=== PATIENT | female | born 2005 | race Hispanic/Latino ===

== ENCOUNTER 2023-07-22 20:47 | Inpatient (IN) | payer MEDICAID, OTHER ==
[~2023-07-22] VITALS: Ht 157.5 cm; Wt 56.2 kg
[2023-07-22 21:50] LABS: BASOPHILS # (AUTO) 0.02 K/uL (0.00-0.20); BASOPHILS % (AUTO) 0.2 % (0.0-5.0); EOSINOPHILS # (AUTO) 0.02 K/uL (0.00-0.70); EOSINOPHILS % (AUTO) 0.2 % (0.0-8.0); HEMATOCRIT 37.2 % (36-48); IMMATURE GRANULOCYTE ABSOLUTE 0.06 K/uL (0-1); LYMPHOCYTES # (AUTO) 1.1 K/uL (1.0-4.8); MEAN CORPUSCULAR HEMOGLOBIN 32.8 pg (27.0-33.0); MEAN CORPUSCULAR HGB CONC 33.3 g/dL (32.0-36.0); MEAN CORPUSCULAR VOLUME 98.4 fL (80-100); MONOCYTES # (AUTO) 0.7 K/uL (0.1-1.0); MONOCYTES % (AUTO) 5.7 % (3.0-13.0); NEUTROPHILS # (AUTO) 10.3 K/uL (1.8-7.7); NEUTROPHILS % (AUTO) 84.4 % (40.0-77.0); PLATELET COUNT (AUTO) 354 K/uL (130-400); RED BLOOD CELL COUNT(AUTO) 3.78 MIL/uL (4.00-5.50); RED CELL DISTRIBUTION WIDTH 12.5 % (11.0-15.5); WHITE BLOOD COUNT (AUTO) 12.2 K/uL (4.8-10.8)
[2023-07-22 21:58] LABS: CREATININE 0.7 mg/dL (0.5-1.5); POTASSIUM 3.3 mmol/L (3.5-5.1)
[2023-07-22 22:02] LABS: APPEARANCE,URINE CLEAR (CLEAR); BILIRUBIN,URINE NEGATIVE (NEGATIVE); COLOR,URINE LIGHT-YELLOW (YELLOW); GLUCOSE, URINE (UA) NEGATIVE (NEGATIVE); KETONES,URINE 40 mg/dL (NEGATIVE); LEUKOCYTE ESTERASE ,URINE 25 Leu/uL (NEGATIVE); NITRATE,URINE NEGATIVE (NEGATIVE); OCCULT BLOOD,URINE NEGATIVE (NEGATIVE); PH,URINE 6.5 (5.0-8.0); PROTEIN,URINE NEGATIVE (NEGATIVE); UROBILINOGEN,URINE 0.2 mg/dL (0.2-1.0)
[2023-07-22 22:03] LABS: BILIRUBIN,TOTAL 0.5 mg/dL (0.2-1.0); TOTAL PROTEIN, SERUM 8.4 g/dL (6.0-8.3)
[2023-07-22 22:03] LABS: ADD UA MICROSCOPIC YES
[2023-07-22 22:04] LABS: HCG,QUALITATIVE URINE NEGATIVE (NEGATIVE)
[2023-07-22 22:06] LABS: BACTERIA,URINE RARE /HPF (None Seen); MUCUS,URINE RARE LPF (None Seen); SQUAMOUS EPITHELIAL CELL,UR RARE /HPF (0-2)
[2023-07-22 22:41] LABS: WBC MORPHOLOGY CONSISTENT W/DIFF
[2023-07-22] MEDS ORDERED: POTASSIUM BICARB/CIT AC 25 MEQ TABLET.EFF PO ONE (23:00)
[2023-07-23] VITALS (7 sets, daily range): BP systolic 104–127; BP diastolic 55–81; PULSE 70–91; RESP 16–19; O2SAT 98
[2023-07-23] MEDS ORDERED: CEPH500B PO (00:09)
[2023-07-23] MEDS ORDERED: ZOSYN 3.375GM +NS 50ML IVPB SCH (00:30)
[2023-07-23] MEDS ORDERED: IOHEXOL-350 75 ML VIAL IV ONE (00:58)
[2023-07-23] MEDS ORDERED: DIATR MEGLU/DIATRIZOATE SODIUM 30 ML BOTTLE ONE (00:58)
[2023-07-23] MEDS ORDERED: MORPHINE 4 MG SYG IVP ONE (01:00)
[2023-07-23] MEDS ORDERED: 0.9%NACL 1000ML 1,000 ML IV ONE (01:00)
[2023-07-23] MEDS ORDERED: ONDANSETRON 4MG INJ IVP ONE (01:00)
[2023-07-23 01:08] LABS: INR < 0.93 (0.85-1.15); PROTHROMBIN TIME 10.8 SEC (9.6-11.6)
[2023-07-23] MEDS ORDERED: MAGNESIUM 2GM PREMIX 50ML 50 ML IV PRN (03:30)
[2023-07-23] MEDS ORDERED: ACETAMINOPHEN 325 MG TAB PO PRN ×2 (03:30)
[2023-07-23] MEDS ORDERED: MORPHINE 2 MG SYG IVP PRN (03:30)
[2023-07-23] MEDS: LACTATED RINGERS 1000ML 1,000 ML IV SCH ×3 (03:47→22:28)
[2023-07-23] MEDS: ZOSYN 3.375GM+NS 50ML 50 ML IV SCH ×3 (04:48→21:12)
[2023-07-23 06:52] LABS: BASOPHILS # (AUTO) 0.03 K/uL (0.00-0.20); BASOPHILS % (AUTO) 0.2 % (0.0-5.0); EOSINOPHILS # (AUTO) 0.03 K/uL (0.00-0.70); EOSINOPHILS % (AUTO) 0.2 % (0.0-8.0); IMMATURE GRANULOCYTE ABSOLUTE 0.08 K/uL (0-1); LYMPHOCYTES # (AUTO) 1.8 K/uL (1.0-4.8); LYMPHOCYTES % (AUTO) 13.5 % (21.0-51.0); MEAN CORPUSCULAR HEMOGLOBIN 33.4 pg (27.0-33.0); MEAN CORPUSCULAR VOLUME 98.3 fL (80-100); MONOCYTES # (AUTO) 0.8 K/uL (0.1-1.0); MONOCYTES % (AUTO) 5.9 % (3.0-13.0); NEUTROPHILS # (AUTO) 10.8 K/uL (1.8-7.7); NEUTROPHILS % (AUTO) 79.6 % (40.0-77.0); PLATELET COUNT (AUTO) 331 K/uL (130-400); RED BLOOD CELL COUNT(AUTO) 3.56 MIL/uL (4.00-5.50); RED CELL DISTRIBUTION WIDTH 12.4 % (11.0-15.5); WHITE BLOOD COUNT (AUTO) 13.6 K/uL (4.8-10.8)
[2023-07-23 06:55] LABS: ALBUMIN 3.5 g/dL (3.5-5.0); BILIRUBIN,TOTAL 0.6 mg/dL (0.2-1.0); CREATININE 0.7 mg/dL (0.5-1.5); MAGNESIUM 1.7 mg/dL (1.80-2.40); POTASSIUM 3.3 mmol/L (3.5-5.1); TOTAL PROTEIN, SERUM 7.4 g/dL (6.0-8.3)
[2023-07-23 08:07] LABS: ERYTHROCYTE SEDIMENTATION RATE 50 MM/HR (0-20)
[2023-07-23] MEDS: FAMOTIDINE 20MG VIAL IV SCH ×2 (09:12→21:12)
[2023-07-23] MEDS: POTASSIUM CHLORIDE 20MEQ/100ML 100 ML IV PRN ×2 (10:26→15:50)
[2023-07-23] MEDS ORDERED: PEG 3350/NA SULF,BICARB,CL/KCL 4000 ML SOLN PO ONE (14:30)
[2023-07-23] MEDS ORDERED: FLUCONAZOLE 200 MG/NS 100 ML IV SCH (16:00)
[2023-07-24] VITALS (14 sets, daily range): BP systolic 91–123; BP diastolic 49–78; PULSE 57–87; RESP 15–20; O2SAT 94
[2023-07-24] MEDS: ZOSYN 3.375GM+NS 50ML 50 ML IV SCH ×3 (04:45→20:31)
[2023-07-24 06:32] LABS: BASOPHILS # (AUTO) 0.02 K/uL (0.00-0.20); BASOPHILS % (AUTO) 0.3 % (0.0-5.0); EOSINOPHILS # (AUTO) 0.11 K/uL (0.00-0.70); EOSINOPHILS % (AUTO) 1.5 % (0.0-8.0); HEMATOCRIT 32.5 % (36-48); IMMATURE GRANULOCYTE ABSOLUTE 0.03 K/uL (0-1); LYMPHOCYTES # (AUTO) 1.2 K/uL (1.0-4.8); LYMPHOCYTES % (AUTO) 17.1 % (21.0-51.0); MEAN CORPUSCULAR HEMOGLOBIN 32.5 pg (27.0-33.0); MEAN CORPUSCULAR HGB CONC 32.9 g/dL (32.0-36.0); MEAN CORPUSCULAR VOLUME 98.8 fL (80-100); MONOCYTES # (AUTO) 0.6 K/uL (0.1-1.0); NEUTROPHILS # (AUTO) 5.3 K/uL (1.8-7.7); NEUTROPHILS % (AUTO) 72.7 % (40.0-77.0); PLATELET COUNT (AUTO) 295 K/uL (130-400); RED BLOOD CELL COUNT(AUTO) 3.29 MIL/uL (4.00-5.50); RED CELL DISTRIBUTION WIDTH 12.2 % (11.0-15.5); WHITE BLOOD COUNT (AUTO) 7.3 K/uL (4.8-10.8)
[2023-07-24 06:45] LABS: ALBUMIN 3.1 g/dL (3.5-5.0); BILIRUBIN,TOTAL 0.5 mg/dL (0.2-1.0); CREATININE 0.7 mg/dL (0.5-1.5); POTASSIUM 3.7 mmol/L (3.5-5.1); TOTAL PROTEIN, SERUM 6.7 g/dL (6.0-8.3)
[2023-07-24] MEDS ORDERED: PROPOFOL 10 MG/ML 20ML VIAL IV ONE ×2 (07:42→07:51)
[2023-07-24] MEDS ORDERED: FLUCONAZOLE 200 MG/NS 100 ML 100 ML IV SCH (08:00)
[2023-07-24] MEDS: FAMOTIDINE 20MG VIAL IV SCH ×2 (09:00→20:31)
[2023-07-24] MEDS ORDERED: AZITHROMYCIN 250 MG TABLET PO ONE (14:30)
[2023-07-24] MEDS: ONDANSETRON 4MG INJ IV PRN (15:50)
[2023-07-24] MEDS: LACTATED RINGERS 1000ML 1,000 ML IV SCH (16:00)
[2023-07-24] MEDS: FLUCONAZOLE 200 MG/NS 100 ML 100 ML IV SCH (16:48)
[2023-07-25] VITALS (7 sets, daily range): BP systolic 102–125; BP diastolic 53–75; PULSE 60–72; RESP 18–20; O2SAT 98–99
[2023-07-25] MEDS: ZOSYN 3.375GM+NS 50ML 50 ML IV SCH ×3 (04:41→21:24)
[2023-07-25 05:36] LABS: BASOPHILS # (AUTO) 0.03 K/uL (0.00-0.20); BASOPHILS % (AUTO) 0.5 % (0.0-5.0); EOSINOPHILS # (AUTO) 0.21 K/uL (0.00-0.70); EOSINOPHILS % (AUTO) 3.2 % (0.0-8.0); HEMATOCRIT 33.8 % (36-48); IMMATURE GRANULOCYTE ABSOLUTE 0.01 K/uL (0-1); LYMPHOCYTES # (AUTO) 1.5 K/uL (1.0-4.8); LYMPHOCYTES % (AUTO) 22.5 % (21.0-51.0); MEAN CORPUSCULAR HEMOGLOBIN 32.6 pg (27.0-33.0); MEAN CORPUSCULAR HGB CONC 33.1 g/dL (32.0-36.0); MEAN CORPUSCULAR VOLUME 98.3 fL (80-100); MONOCYTES # (AUTO) 0.6 K/uL (0.1-1.0); MONOCYTES % (AUTO) 8.6 % (3.0-13.0); NEUTROPHILS # (AUTO) 4.3 K/uL (1.8-7.7); PLATELET COUNT (AUTO) 353 K/uL (130-400); RED BLOOD CELL COUNT(AUTO) 3.44 MIL/uL (4.00-5.50); RED CELL DISTRIBUTION WIDTH 12.2 % (11.0-15.5); WHITE BLOOD COUNT (AUTO) 6.5 K/uL (4.8-10.8)
[2023-07-25 05:50] LABS: ALBUMIN 3.6 g/dL (3.5-5.0); BILIRUBIN,TOTAL 0.4 mg/dL (0.2-1.0); CREATININE 0.9 mg/dL (0.5-1.5); POTASSIUM 3.3 mmol/L (3.5-5.1); TOTAL PROTEIN, SERUM 7.9 g/dL (6.0-8.3)
[2023-07-25] MEDS: KCL 20 MEQ ERTAB PO PRN (09:19)
[2023-07-25] MEDS: FAMOTIDINE 20MG VIAL IV SCH ×2 (09:19→21:24)
[2023-07-25] MEDS: POTASSIUM CHLORIDE 10% ELIXIR 20 MEQ/15 ML UDCUP PO PRN ×2 (11:09→12:25)
[2023-07-25] MEDS: FLUCONAZOLE 200 MG/NS 100 ML 100 ML IV SCH (16:29)
[2023-07-25] MEDS: LACTATED RINGERS 1000ML 1,000 ML IV SCH (18:04)
[2023-07-26] MEDS: LACTATED RINGERS 1000ML 1,000 ML IV SCH ×2 (01:30→04:51)
[2023-07-26 03:40] VITALS: BP 122/66; PULSE 74; RESP 18
[2023-07-26] MEDS: ZOSYN 3.375GM+NS 50ML 50 ML IV SCH ×2 (04:50→13:35)
[2023-07-26] MEDS ORDERED: DIATR MEGLU/DIATRIZOATE SODIUM 30 ML BOTTLE ONE (05:49)
[2023-07-26 06:50] LABS: BASOPHILS # (AUTO) 0.02 K/uL (0.00-0.20); BASOPHILS % (AUTO) 0.3 % (0.0-5.0); EOSINOPHILS # (AUTO) 0.17 K/uL (0.00-0.70); EOSINOPHILS % (AUTO) 2.4 % (0.0-8.0); HEMATOCRIT 34.3 % (36-48); IMMATURE GRANULOCYTE ABSOLUTE 0.02 K/uL (0-1); LYMPHOCYTES # (AUTO) 0.8 K/uL (1.0-4.8); LYMPHOCYTES % (AUTO) 10.9 % (21.0-51.0); MEAN CORPUSCULAR HEMOGLOBIN 33.1 pg (27.0-33.0); MEAN CORPUSCULAR HGB CONC 33.8 g/dL (32.0-36.0); MONOCYTES # (AUTO) 0.8 K/uL (0.1-1.0); MONOCYTES % (AUTO) 10.5 % (3.0-13.0); NEUTROPHILS # (AUTO) 5.4 K/uL (1.8-7.7); NEUTROPHILS % (AUTO) 75.6 % (40.0-77.0); PLATELET COUNT (AUTO) 331 K/uL (130-400); RED CELL DISTRIBUTION WIDTH 12.2 % (11.0-15.5); WHITE BLOOD COUNT (AUTO) 7.1 K/uL (4.8-10.8)
[2023-07-26 07:10] LABS: ALBUMIN 3.2 g/dL (3.5-5.0); BILIRUBIN,TOTAL 0.2 mg/dL (0.2-1.0); CREATININE 0.8 mg/dL (0.5-1.5); POTASSIUM 3.3 mmol/L (3.5-5.1); TOTAL PROTEIN, SERUM 7.2 g/dL (6.0-8.3)
[2023-07-26 07:17] VITALS: BP 105/67; PULSE 76; RESP 18
[2023-07-26] MEDS: FAMOTIDINE 20MG VIAL IV SCH (07:27)
[2023-07-26] MEDS: ONDANSETRON 4MG INJ IV PRN (07:27)
[2023-07-26] MEDS: KCL 20 MEQ ERTAB PO PRN ×3 (07:27→11:37)
[2023-07-26] MEDS ORDERED: IOHEXOL-350 75 ML VIAL IV ONE (09:30)
[2023-07-26 09:34] VITALS: O2SAT 98
[2023-07-26 12:33] VITALS: BP 103/64; PULSE 75; RESP 18
[2023-07-26] MEDS: FLUCONAZOLE 200 MG/NS 100 ML 100 ML IV SCH (14:54)
[2023-07-26] MEDS ORDERED: FLUC200T12 PO (15:24)
[2023-07-26] MEDS ORDERED: AUGMENTIN PO (15:25)
== END 2023-07-26 16:25 | disposition home or self-care (01) | DRG 758 ==
LOC: EDH 20:47 → EDHIP 20:48 → WSH 07-23 09:35
PROVIDERS: ADMIT Hospitalist; ATTEND Hospitalist
PROC: 0DJD8ZZ Inspection of Lower Intestinal Tract, Via Natural or Artificial Opening Endoscopic (ICD-10-PCS; principal; 2023-07-24)
DX: N73.9 Female pelvic inflammatory disease, unspecified (principal); L02.211 Cutaneous abscess of abdominal wall; N39.0 Urinary tract infection, site not specified; A74.89 Other chlamydial diseases; E87.6 Hypokalemia; F10.20 Alcohol dependence, uncomplicated
CPT/HCPCS: 36415; 45378; 74177; 76705; 76856; 80053; 81001; 81025; 82550; 83605; 83735; 84145; 84484; 84703; 85025; 85610; 85651; 85730; 87040; 87088; 87486; 87797; G0378; J1450; J2270; J2405; J2543; J2704; J3475; J3480; J3490; J7030; J7120; Q9963; Q9967; A4215; A4222; A4620; A7002

== ENCOUNTER 2023-11-10 19:38 | Emergency (ER) | payer BC, OTHER ==
[~2023-11-10] VITALS: Ht 154.9 cm; Wt 52.2 kg
[~2023-11-10 19:38] MED LIST: AUGMENTIN PO; FLUC200T12 PO
[2023-11-10] MEDS ORDERED: ONDANSETRON 4MG INJ IVP ONE (20:30)
[2023-11-10] MEDS ORDERED: MORPHINE 2 MG SYG IVP ONE (20:30)
[2023-11-10] MEDS ORDERED: 0.9%NACL 1000ML 1,000 ML IV ONE (20:30)
[2023-11-10 20:46] LABS: APPEARANCE,URINE CLEAR (CLEAR); BILIRUBIN,URINE NEGATIVE (NEGATIVE); COLOR,URINE LIGHT-YELLOW (YELLOW); GLUCOSE, URINE (UA) NEGATIVE (NEGATIVE); KETONES,URINE 60 mg/dL (NEGATIVE); LEUKOCYTE ESTERASE ,URINE NEGATIVE Leu/uL (NEGATIVE); NITRATE,URINE NEGATIVE (NEGATIVE); OCCULT BLOOD,URINE NEGATIVE (NEGATIVE); PROTEIN,URINE NEGATIVE (NEGATIVE); UROBILINOGEN,URINE 0.2 mg/dL (0.2-1.0)
[2023-11-10 20:47] LABS: ADD UA MICROSCOPIC YES
[2023-11-10 20:48] LABS: BACTERIA,URINE RARE /HPF (None Seen); MUCUS,URINE RARE LPF (None Seen); RBC,URINE 0-1 /HPF (0-1); SQUAMOUS EPITHELIAL CELL,UR FEW /HPF (0-2); WBC,URINE 0-1 /HPF (0-1)
[2023-11-10 20:49] LABS: BASOPHILS # (AUTO) 0.02 K/uL (0.00-0.20); BASOPHILS % (AUTO) 0.2 % (0.0-5.0); EOSINOPHILS # (AUTO) 0.02 K/uL (0.00-0.70); EOSINOPHILS % (AUTO) 0.2 % (0.0-8.0); HEMATOCRIT 39.8 % (36-48); IMMATURE GRANULOCYTE ABSOLUTE 0.02 K/uL (0-1); LYMPHOCYTES # (AUTO) 1.5 K/uL (1.0-4.8); LYMPHOCYTES % (AUTO) 14.4 % (21.0-51.0); MEAN CORPUSCULAR HEMOGLOBIN 31.9 pg (27.0-33.0); MEAN CORPUSCULAR HGB CONC 34.2 g/dL (32.0-36.0); MEAN CORPUSCULAR VOLUME 93.4 fL (80-100); MONOCYTES % (AUTO) 9.4 % (3.0-13.0); NEUTROPHILS # (AUTO) 7.8 K/uL (1.8-7.7); NEUTROPHILS % (AUTO) 75.6 % (40.0-77.0); PLATELET COUNT (AUTO) 258 K/uL (130-400); RED BLOOD CELL COUNT(AUTO) 4.26 MIL/uL (4.00-5.50); RED CELL DISTRIBUTION WIDTH 12.8 % (11.0-15.5); WHITE BLOOD COUNT (AUTO) 10.4 K/uL (4.8-10.8)
[2023-11-10 21:01] LABS: CREATININE 0.8 mg/dL (0.5-1.5); POTASSIUM 3.7 mmol/L (3.5-5.1)
[2023-11-10 21:09] LABS: ALBUMIN 4.5 g/dL (3.5-5.0); BILIRUBIN,TOTAL 0.6 mg/dL (0.2-1.0); TOTAL PROTEIN, SERUM 8.1 g/dL (6.0-8.3)
[2023-11-11] MEDS: PEG 3350/NA SULF,BICARB,CL/KCL 4000 ML SOLN PO ONE (02:00)
[2023-11-11] MEDS ORDERED: NA P133E4 RC (03:50)
[2023-11-11 04:00] VITALS: BP 128/86; PULSE 70; RESP 18; O2SAT 99
[2023-11-11] MEDS: PEG 3350/NA SULF,BICARB,CL/KCL 4000 ML SOLN ONE (04:08)
== END 2023-11-11 04:12 | disposition home or self-care (01) ==
LOC: EDH 19:38
DX: K59.00 Constipation, unspecified (principal); R10.2 Pelvic and perineal pain
CPT/HCPCS: 36415; 80053; 81001; 83690; 84484; 84702; 85025

== ENCOUNTER 2024-03-29 10:14 | Emergency (ER) | payer BC ==
[~2024-03-29] VITALS: Ht 157.5 cm; Wt 54.4 kg
[~2024-03-29 10:14] MED LIST changes: +NA P133E4 RC
[2024-03-29 10:45] VITALS: BP 115/65; PULSE 75; RESP 18
[2024-03-29 10:47] LABS: BASOPHILS # (AUTO) 0.03 K/uL (0.00-0.20); BASOPHILS % (AUTO) 0.2 % (0.0-5.0); EOSINOPHILS # (AUTO) 0.09 K/uL (0.00-0.70); EOSINOPHILS % (AUTO) 0.5 % (0.0-8.0); HEMATOCRIT 39.3 % (36-48); IMMATURE GRANULOCYTE ABSOLUTE 0.09 K/uL (0-1); LYMPHOCYTES # (AUTO) 1.6 K/uL (1.0-4.8); LYMPHOCYTES % (AUTO) 9.6 % (21.0-51.0); MEAN CORPUSCULAR HEMOGLOBIN 31.7 pg (27.0-33.0); MEAN CORPUSCULAR HGB CONC 33.6 g/dL (32.0-36.0); MEAN CORPUSCULAR VOLUME 94.2 fL (80-100); MONOCYTES # (AUTO) 1.3 K/uL (0.1-1.0); MONOCYTES % (AUTO) 7.4 % (3.0-13.0); NEUTROPHILS # (AUTO) 13.8 K/uL (1.8-7.7); NEUTROPHILS % (AUTO) 81.8 % (40.0-77.0); PLATELET COUNT (AUTO) 260 K/uL (130-400); RED BLOOD CELL COUNT(AUTO) 4.17 MIL/uL (4.00-5.50); RED CELL DISTRIBUTION WIDTH 12.9 % (11.0-15.5); WHITE BLOOD COUNT (AUTO) 16.8 K/uL (4.8-10.8)
[2024-03-29] MEDS: ONDANSETRON 4MG INJ IVP ONE (11:01)
[2024-03-29] MEDS: MORPHINE 2 MG SYG IVP ONE (11:02)
[2024-03-29] MEDS: PHENAZOPYRIDINE HCL 200 MG TABLET PO ONE (11:02)
[2024-03-29] MEDS: 0.9%NACL 1000ML 1,000 ML IV ONE (11:03)
[2024-03-29 11:08] LABS: HCG,QUALITATIVE URINE NEGATIVE (NEGATIVE)
[2024-03-29 11:12] LABS: ALBUMIN 4.5 g/dL (3.5-5.0); BILIRUBIN,TOTAL 0.4 mg/dL (0.2-1.0); CREATININE 0.7 mg/dL (0.5-1.0); POTASSIUM 3.7 mmol/L (3.5-5.1); TOTAL PROTEIN, SERUM 7.9 g/dL (6.0-8.3)
[2024-03-29 11:22] LABS: APPEARANCE,URINE TURBID (CLEAR); BILIRUBIN,URINE NEGATIVE (NEGATIVE); COLOR,URINE YELLOW (YELLOW); GLUCOSE, URINE (UA) NEGATIVE (NEGATIVE); KETONES,URINE NEGATIVE (NEGATIVE); LEUKOCYTE ESTERASE ,URINE 500 Leu/uL (NEGATIVE); NITRATE,URINE NEGATIVE (NEGATIVE); OCCULT BLOOD,URINE LARGE (NEGATIVE); PROTEIN,URINE 200 mg/dL (NEGATIVE)
[2024-03-29 11:25] LABS: ADD UA MICROSCOPIC YES
[2024-03-29 11:30] LABS: BACTERIA,URINE FEW /HPF (None Seen); MUCUS,URINE RARE LPF (None Seen); RBC,URINE >100 /HPF (0-1); SQUAMOUS EPITHELIAL CELL,UR MANY /HPF (0-2); TRANSITIONAL EPI CELLS,URINE FEW /HPF (None Seen); WBC CLUMP FEW /HPF (0-1); WBC,URINE TNTC /HPF (0-1)
[2024-03-29] MEDS: CEFTRIAXONE 2GM VIAL IVPB ONE (11:40)
[2024-03-29] MEDS ORDERED: IOHEXOL-350 75 ML VIAL IV ONE (13:04)
[2024-03-29] MEDS ORDERED: AMOX1TAB16 PO (13:57)
[2024-03-29] MEDS ORDERED: IBUP-2070 PO (13:57)
[2024-03-29] MEDS ORDERED: PHEN-847 PO (13:57)
== END 2024-03-29 14:22 | disposition home or self-care (01) ==
LOC: EDH 10:14
DX: N30.01 Acute cystitis with hematuria (principal); K59.00 Constipation, unspecified; Z79.899 Other long term (current) drug therapy
CPT/HCPCS: 99284; 74177; 96374; 96375; 96361; 80053; 85025; 87040 ×2; 87086 ×2; 87186; 83605; 81001; 81025; 36415; J2270; J7030; J0696; J2405; Q9967

== ENCOUNTER 2024-07-28 14:13 | Emergency (ER) | payer BC ==
[~2024-07-28] VITALS: Ht 157.5 cm; Wt 54.4 kg
[~2024-07-28 14:13] MED LIST changes: +AMOX1TAB16 PO; -FLUC200T12 PO; +FLUC200T96 PO; +IBUP-2070 PO; +PHEN-847 PO
--- NOTE | 2024-07-28 15:03 | ERN ---
General Chief Complaint: Abdominal Pain in Stated Complaint: ABD PAIN, + TEST Time Seen by MD: 14:15 Source: patient History of Present Illness Initial Comments PATIENT IS A 19-YEAR-OLD FEMALE COMING IN TO BE EVALUATED FOR ABDOMINAL DISCOMFORT. PATIENT STATES THAT SHE IS A AB1AT POSSIBLY SIX WEEKS BY DATE. Allergies: Coded Allergies: No Known Allergies (Unverified Allergy, Unknown, 07/22/23) Home Meds Active Scripts Phenazopyridine HCl (Pyridium) 200 Mg Tab, 200 MG PO TIDPC for 3 Days, #9 TAB TAKE WITH FOOD TO PREVENT STOMACH UPSET. Prov:DELMA MERINO NP 03/29/24 Ibuprofen (Ibuprofen) 600 Mg Tablet, 600 MG PO Q6H PRN for PAIN, #30 TAB Prov:DELMA MERINO NP 03/29/24 Amoxicillin/Potassium Clav (Amox Tr-K Clv 875-125 mg Tab) 875 Mg-125 Mg Tablet, 1 EACH PO BID for 7 Days, #14 TAB 0 Refills Prov:DELMA MERINO NP 03/29/24 Na Phos,M-B/Na Phos,Di-Ba (Enema) 19 Gram-7 Gram/118 Ml Enema, 133 ML RC BID PRN for CONSTIPATION, #2 ENEMA Prov:HAL DARBY MD 11/11/23 Reported Medications [Augmentin] No Conflict Check, 875 MG PO BID 07/26/23 Fluconazole (Fluconazole) 200 Mg Tablet, 200 MG PO DAILY, TAB 07/26/23 Past Medical History Past Medical History: No Pertinent History, GERD Past Surgical History: None Female( History) History: Not Applicable LMP: Jun 15, 2024 : 1 Para: 0 Aborts: 0 ROS Dictation CONSTITUTIONAL: NO CHILLS, NO FEVER, NO WEAKNESS, NO DIAPHORESIS, NO MALAISE. HEAD/FACE: NO SIGNS OF TRAUMA. EENT: NO EYE PAIN, NO BLURRED VISION, NO TEARING, NO DOUBLE VISION, NO EAR PAIN, NO EAR DISCHARGE, NO NOSE PAIN, NO NASAL CONGESTION, NO THROAT PAIN, NO THROAT SWELLING, NO MOUTH PAIN. RESPIRATORY: NO COUGH, NO ORTHOPNEA, NO SOB, NO STRIDOR, NO WHEEZING. CARDIOVASCULAR: NO CHEST PAIN, NO EDEMA, NO PALPITATIONS, NO SYNCOPE. GASTROINTESTINAL/ABDOMINAL: NO ABDOMINAL PAIN, NO CONSTIPATION, NO DIARRHEA, NO NAUSEA, NO VOMITING. GENITOURINARY: NO ABNORMAL DISCHARGE, NO DYSURIA, NO FREQUENT URINATION, NO HEMATURIA. NO COMPLAINTS OF PAIN IN THE GENITALS. MUSCULOSKELETAL: NO BACK PAIN, NO GOUT, NO JOINT PAIN, NO JOINT SWELLING, NO MUSCLE PAIN, NO MUSCLE STIFFNESS, NO NECK PAIN. INTEGUMENTARY: NO CHANGE IN COLOR, NO CHANGE IN HAIR/NAILS, NO DRYNESS, NO LESION, NO LUMPS, NO RASH. NEUROLOGICAL/PSYCH: NO ANXIETY, NOT DEPRESSED, NO EMOTIONAL PROBLEM, NO HEADACHE, NO NUMBNESS, NO PRE-EXISTING DEFICIT, NO HISTORY OF SEIZURES, NO TREMORS, NO WEAKNESS. HEMATOLOGIC/LYMPHATIC: NOT ANEMIC, NO HISTORY OF BLOOD CLOTS, NO APPARENT BLEEDING, NO BRUISING, GLANDS NOT SWOLLEN. ALL SYSTEMS NEGATIVE, EXCEPT NOTED. Physical Exam Physical Exam Dictation VITAL SIGNS: REVIEWED. GENERAL APPEARANCE: ALERT, ORIENTED X3, NO ACUTE DISTRESS, OBESE. HEAD AND FACE: NON-TRAUMATIC. EYES: PERRL, PINK CONJUNCTIVAS, EYELID NO TRAUMA, ANTERIOR CHAMBER CLEAR. EARS: PINNAS INTACT AND NO SIGNS OF TRAUMA OR ERYTHEMA. EAR CANALS CLEAR AND NO DISCHARGE. TMS NO ERYTHEMA. NOSE: NO DISCHARGE, NO BLEEDING. OROPHARYNX: MOUTH NORMAL, TEETH NO CARIES, TONGUE PINK. PHARYNX CLEAR, NO ERYTHEMA. TONSILS NO EXUDATES, NO ABSCESSES NOTED. MUCOUS MEMBRANE MOIST. NECK: SUPPLE, NON-TENDER, NO THYROMEGALY, NO MASSES, NO JVD, NO BRUITS. BREAST: DEFERRED. CHEST: NO TENDERNESS, NO CREPITUS, NO PARADOXICAL MOVEMENT, NO RETRACTIONS. LUNGS: CLEAR, WELL-VENTILATED, SYMMETRIC, NO RALES, NO WHEEZING, NO RHONCHI, NO STRIDOR, GOOD BREATH SOUNDS BILATERALLY. HEART: REGULAR RATE, REGULAR RHYTHM, NO MURMUR, NO GALLOPS. VASCULAR: NO PERIPHERAL EDEMA. ABDOMEN: SOFT, POSITIVE BOWEL SOUNDS, NONDISTENDED, NO GUARDING, GENERALIZED ABDOMINAL DISCOMFORT RECTAL: DEFERRED. GENITAL: DEFERRED. NEUROLOGICAL: NORMAL SPEECH, GROSS MOTOR FUNCTION INTACT, GROSS SENSORY FUNCTION INTACT. MUSCULOSKELETAL: NECK NONTENDER, FULL RANGE OF MOTION, BACK NONTENDER, FULL RANGE OF MOTION. EXTREMITIES: NONTENDER, FULL RANGE OF MOTION. SKIN: COLOR PINK, DRY, NO TURGOR, NO RASH, NO LACERATIONS, NO ABRASIONS, NO CONTUSIONS. LYMPHATICS: DEFERRED. Results Laboratory and Microbiology Lab and Micro Result Laboratory Tests Test 07/28/24 14:24 07/28/24 15:16 Urine Color LIGHT-YELLOW (YELLOW) Urine Appearance CLEAR (CLEAR) Urine pH 6.5 (5.0-8.0) Urine Specific [place] 1.009 (1.001-1.031) Urine Protein NEGATIVE mg/dL (NEGATIVE) Urine Glucose (UA) NEGATIVE mg/dL (NEGATIVE) Urine Ketones 60 mg/dL (NEGATIVE) H Urine Occult Blood NEGATIVE (NEGATIVE) Urine Nitrate NEGATIVE (NEGATIVE) Urine Bilirubin NEGATIVE mg/dL (NEGATIVE) Urine Urobilinogen 0.2 mg/dL (0.2-1.0) Urine Leukocyte Esterase NEGATIVE Diana/uL Urine RBC 0-1 /HPF (0-1) Urine WBC 0-1 /HPF (0-1) Urine Squamous Epithelial Cells RARE /HPF (0-2) Urine Bacteria RARE /HPF (None Seen) White Blood Count 8.8 K/uL (4.8-10.8) Red Blood Count 4.10 MIL/uL (4.00-5.50) Hemoglobin 13.2 g/dL (12.0-16.0) Hematocrit 38.3 % (36-48) Mean Corpuscular Volume 93.4 fL (80-100) Mean Corpuscular Hemoglobin 32.2 pg (27.0-33.0) Mean Corpuscular Hemoglobin Concent 34.5 g/dL (32.0-36.0) Red Cell Distribution Width 12.7 % (11.0-15.5) Platelet Count 226 K/uL (130-400) Mean Platelet Volume 10.3 fL (7.5-10.5) Immature Granulocyte % (Auto) 0.2 % (0-1) Neutrophils (%) (Auto) 79.3 % (40.0-77.0) H Lymphocytes (%) (Auto) 13.8 % (21.0-51.0) L Monocytes (%) (Auto) 6.4 % (3.0-13.0) Eosinophils (%) (Auto) 0.1 % (0.0-8.0) Basophils (%) (Auto) 0.2 % (0.0-5.0) Neutrophils # (Auto) 7.0 K/uL (1.8-7.7) Lymphocytes # (Auto) 1.2 K/uL (1.0-4.8) Monocytes # (Auto) 0.6 K/uL (0.1-1.0) Eosinophils # (Auto) 0.01 K/uL (0.00-0.70) Basophils # (Auto) 0.02 K/uL (0.00-0.20) Absolute Immature Granulocyte (auto 0.02 K/uL (0-1) Nucleated Red Blood Cells 0.0 % (0.0-0.19) Sodium Level 137 mmol/L (136-145) Potassium Level 3.2 mmol/L (3.5-5.1) L Chloride Level 100 mmol/L (101-111) L Carbon Dioxide Level 28 mmol/L (21-32) Blood Urea Nitrogen 4 mg/dL (7-18) L Creatinine 0.6 mg/dL (0.5-1.0) Glomerular Filtration Rate Calc 131 mL/min (>90) Random Glucose 96 mg/dL (70-105) Total Calcium 9.1 mg/dL (8.5-10.1) Total Bilirubin 0.4 mg/dL (0.2-1.0) Aspartate Amino Transf (AST/SGOT) 11 U/L (10-37) Alanine Aminotransferase (ALT/SGPT) 14 U/L (12-78) Alkaline Phosphatase 54 U/L (50-136) Total Protein 7.5 g/dL (6.0-8.3) Albumin 4.1 g/dL (3.5-5.0) Human Chorionic Gonadotropin, Quant 84751 mIU/mL (0-5) H Labs Reviewed?: Yes EKG/XRAY/US/CT/MRI Ultrasound Comment [id number] [id number] IMAGING REPORT Signed PATIENT: BREANNA ARRINGTON MR#: [id number] : 2005 SEX: F AGE: 19 LOCATION: ED ORDER 20 STATUS: REG ER REPORT#: [id number] SERVICE 19 REASON: VAG BLEED ORDERING PHYSICIAN: LATANYA CURRY MD PROCEDURE: OB <14 - US OB <14 WEEKS US OB <14 WEEKS REASON: VAG BLEED COMPARISON: None TECHNIQUE: Routine pelvic sonogram was performed. FINDINGS: There is an intrauterine gestational sac. There is a pole corresponding with a 6 week 3 day IUP, heart rate 124 BPM. Uterus appears otherwise normal. Both ovaries appear normal. There are no adnexal masses. There is no free fluid in the cul-de-sac. IMPRESSION: 1. Intrauterine gestation, pole corresponding with a 6 week 3 day IUP, heart rate 124 BPM. DICTATED BY: GRECIA CRUZ MD DATE: 07/28/241532 ELECTRONICALLY SIGNED BY: GRECIA CRUZ MD DATE: 07/28/241535 [facility] MDM: DIFFERENTIAL DIAGNOSIS: , GESTATIONAL DISCOMFORT, NAUSEOUSNESS IN PATIENT IS A 19-YEAR-OLD FEMALE COMING IN TO BE EVALUATED SHE IS A AT SIX WEEKS BY DATE. ULTRASOUND DID CONFIRM GESTATIONAL AGE. PATIENT WILL BE DISCHARGED IN STABLE CONDITION I ADVISED HER APPROPRIATE FOLLOW UP WITH OBGYN IN 1-2 DAYS. ED Course Orders Procedure Category Date Status Time Cbc With Differential LAB 07/28/24 Complete 14:20 Comprehensive LAB 07/28/24 Complete Metabolic Panel 14:20 Urinalysis LAB 07/28/24 Complete W/Microscopic 14:20 Hcg,Quantitative LAB 07/28/24 Complete 14:20 Us Ob <14 Weeks US 07/28/24 Resulted 14:20 Vital Signs Date Time Temp Pulse Resp B/P (MAP) Pulse Ox O2 Delivery O2 Flow Rate FiO2 07/28/24 15:52 98.6 70 16 120/60 98 Room Air* 0 21 07/28/24 14:15 98.6 74 16 122/60 99 Room Air 0 DX & DISP Disposition: Discharge Departure Impression: Primary Impression: Additional Impression: Nausea Condition: Stable Additional Instructions: FOLLOW-UP WITH PRIMARY CARE PROVIDER IN 1 TO 2 DAYS. TAKE MEDICATIONS DIRECTED HERE IN THE EMERGENCY ROOM. OKAY TO CONTINUE HOME MEDICATIONS UNLESS OTHERWISE DISCUSSED DURING YOUR VISIT IN THE EMERGENCY ROOM TODAY. RETURN TO YOUR NEAREST EMERGENCY ROOM IF SYMPTOMS WORSEN OR IF THERE IS NO IMPROVEMENT. CALL 911 IF YOU NEED IMMEDIATE ASSISTANCE. TAKE TYLENOL LIYV-LTM-EMVOSNI NEEDED AND IF NO CONTRAINDICATIONS ARE PRESENT. INCREASE ORAL HYDRATION. A WOUND CULTURE OR URINE CULTURE WAS ORDERED HERE IN THE EMERGENCY ROOM DEPARTMENT PLEASE FOLLOW-UP WITH PRIMARY CARE PROVIDER AND ADVISE THEM TO GET REPEAT PORTS FROM OUR FACILITY. IF YOU HAD ANY SIMON WRAP/SPLINTS THAT WERE APPLIED HERE, PLEASE DO NOT REMOVE THEM UNTIL YOU SEE YOUR PRIMARY CARE OR SPECIALTY. REFERRALS: Referrals: SELF,REFERRAL (PCP) JESSICA JOHNSON MD Time of Disposition: 16:17 LATANYA CURRY MD Jul 28, 2024 15:03
[2024-07-28 15:23] LABS: BASOPHILS # (AUTO) 0.02 K/uL (0.00-0.20); BASOPHILS % (AUTO) 0.2 % (0.0-5.0); EOSINOPHILS # (AUTO) 0.01 K/uL (0.00-0.70); EOSINOPHILS % (AUTO) 0.1 % (0.0-8.0); HEMATOCRIT 38.3 % (36-48); IMMATURE GRANULOCYTE ABSOLUTE 0.02 K/uL (0-1); LYMPHOCYTES # (AUTO) 1.2 K/uL (1.0-4.8); LYMPHOCYTES % (AUTO) 13.8 % (21.0-51.0); MEAN CORPUSCULAR HEMOGLOBIN 32.2 pg (27.0-33.0); MEAN CORPUSCULAR HGB CONC 34.5 g/dL (32.0-36.0); MEAN CORPUSCULAR VOLUME 93.4 fL (80-100); MONOCYTES # (AUTO) 0.6 K/uL (0.1-1.0); MONOCYTES % (AUTO) 6.4 % (3.0-13.0); NEUTROPHILS % (AUTO) 79.3 % (40.0-77.0); PLATELET COUNT (AUTO) 226 K/uL (130-400); RED CELL DISTRIBUTION WIDTH 12.7 % (11.0-15.5); WHITE BLOOD COUNT (AUTO) 8.8 K/uL (4.8-10.8)
[2024-07-28 15:34] LABS: CREATININE 0.6 mg/dL (0.5-1.0); POTASSIUM 3.2 mmol/L (3.5-5.1)
[2024-07-28 15:34] LABS: APPEARANCE,URINE CLEAR (CLEAR); BILIRUBIN,URINE NEGATIVE (NEGATIVE); COLOR,URINE LIGHT-YELLOW (YELLOW); GLUCOSE, URINE (UA) NEGATIVE (NEGATIVE); KETONES,URINE 60 mg/dL (NEGATIVE); LEUKOCYTE ESTERASE ,URINE NEGATIVE Leu/uL (NEGATIVE); NITRATE,URINE NEGATIVE (NEGATIVE); OCCULT BLOOD,URINE NEGATIVE (NEGATIVE); PH,URINE 6.5 (5.0-8.0); PROTEIN,URINE NEGATIVE (NEGATIVE); UROBILINOGEN,URINE 0.2 mg/dL (0.2-1.0)
[2024-07-28 15:35] LABS: BACTERIA,URINE RARE /HPF (None Seen); RBC,URINE 0-1 /HPF (0-1); SQUAMOUS EPITHELIAL CELL,UR RARE /HPF (0-2); WBC,URINE 0-1 /HPF (0-1)
--- NOTE | 2024-07-28 15:36 | HMCIMG ---
US OB <14 WEEKS REASON: VAG BLEED COMPARISON: None TECHNIQUE: Routine pelvic sonogram was performed. FINDINGS: There is an intrauterine gestational sac. There is a pole corresponding with a 6 week 3 day IUP, heart rate 124 BPM. Uterus appears otherwise normal. Both ovaries appear normal. There are no adnexal masses. There is no free fluid in the cul-de-sac. IMPRESSION: 1. Intrauterine gestation, pole corresponding with a 6 week 3 day IUP, heart rate 124 BPM.
[2024-07-28 15:52] VITALS: BP 120/60; PULSE 70; RESP 16; TEMP 98.6; O2SAT 98
[2024-07-28 16:04] LABS: ALBUMIN 4.1 g/dL (3.5-5.0); BILIRUBIN,TOTAL 0.4 mg/dL (0.2-1.0); TOTAL PROTEIN, SERUM 7.5 g/dL (6.0-8.3)
--- NOTE | 2024-07-28 16:29 | NUR ---
BENJAMIN PENDING DISCUSSION WITH
== END 2024-07-28 16:31 | disposition home or self-care (01) ==
LOC: EDH 14:13
DX: O26.891 Other specified pregnancy related conditions, first trimester (principal); R11.0 Nausea; R10.2 Pelvic and perineal pain; Z3A.01 Less than 8 weeks gestation of pregnancy; Z79.899 Other long term (current) drug therapy
CPT/HCPCS: 36415; 76801; 80053; 81001; 84702; 85025; 99284

== ENCOUNTER 2024-11-25 13:22 | Emergency (ER) | payer BC, MEDICAID ==
[~2024-11-25] VITALS: Ht 157.5 cm; Wt 61.2 kg
[2024-11-25 13:36] VITALS: BP 101/52; PULSE 100; RESP 14; TEMP 98.3; O2SAT 95
--- NOTE | 2024-11-25 13:46 | ERN ---
General Chief Complaint: Flu Symptoms Stated Complaint: POSSIBLE FLU Time Seen by MD: 13:23 History of Present Illness Initial Comments 19-year-old female, 23 weeks , presents for viral URI/ flu-like symptoms. She reports about a week's worth of sore throat, nonproductive cough, body aches, and some nausea. No vomiting. No headache or vision changes. No chest pain. No shortness of breath. No diarrhea. P.o. tolerant. She denies any urinary symptoms. Denies any vaginal bleeding or discharge. Denies any low er abdominal pain or pelvic pain or cramping. She reports that she was not taken any fyxq-ekx-eaarioc medications because she was unsure what to take in . She denies any fevers over the last week. Allergies: Coded Allergies: No Known Allergies (Unverified Allergy, Unknown, 07/22/23) Home Meds Active Scripts Phenazopyridine HCl (Pyridium) 200 Mg Tab, 200 MG PO TIDPC for 3 Days, #9 TAB TAKE WITH FOOD TO PREVENT STOMACH UPSET. Prov:DELMA MERINO NP 03/29/24 Ibuprofen (Ibuprofen) 600 Mg Tablet, 600 MG PO Q6H PRN for PAIN, #30 TAB Prov:DELMA MERINO NP 03/29/24 Amoxicillin/Potassium Clav (Amox Tr-K Clv 875-125 mg Tab) 875 Mg-125 Mg Tablet, 1 EACH PO BID for 7 Days, #14 TAB 0 Refills Prov:DELMA MERINO NP 03/29/24 Na Phos,M-B/Na Phos,Di-Ba (Enema) 19 Gram-7 Gram/118 Ml Enema, 133 ML RC BID PRN for CONSTIPATION, #2 ENEMA Prov:HAL DARBY MD 11/11/23 Reported Medications [Augmentin] No Conflict Check, 875 MG PO BID 07/26/23 Fluconazole (Fluconazole) 200 Mg Tablet, 200 MG PO DAILY, TAB 07/26/23 Past Medical History Past Medical History: GERD Past Surgical History: None Female( History) History: Not Applicable : 1 Para: 0 Aborts: 0 ROS Dictation CONSTITUTIONAL: Fever body aches HEAD/FACE: No signs of trauma. EENT: No eye pain, no blurred vision, no tearing, no double vision, no ear pain, no ear discharge, no nose pain, no nasal congestion, no throat pain, no throat swelling, no mouth pain. RESPIRATORY: Cough. CARDIOVASCULAR: No chest pain, no edema, no palpitations, no syncope. GASTROINTESTINAL/ABDOMINAL: No abdominal pain, no constipation, no diarrhea, no nausea, no vomiting. GENITOURINARY: No abnormal discharge, no dysuria, no frequent urination, no hematuria. No complaints of pain in the genitals. MUSCULOSKELETAL: No back pain, no gout, no joint pain, no joint swelling, no muscle pain, no muscle stiffness, no neck pain. INTEGUMENTARY: No change in color, no change in hair/nails, no dryness, no lesion, no lumps, no rash. NEUROLOGICAL/PSYCH: No anxiety, not depressed, no emotional problem, no headache, no numbness, no pre-existing deficit, no history of seizures, no tremors, no weakness. HEMATOLOGIC/LYMPHATIC: Not anemic, no history of blood clots, no apparent bleeding, no bruising, glands not swollen. All Systems Negative, Except as Noted. Physical Exam Physical Exam Dictation VITAL SIGNS: Reviewed. GENERAL APPEARANCE: Alert, oriented x3, no acute distress HEAD AND FACE: Non-traumatic. EYES: PERRL, pink conjunctivas, eyelid no trauma, anterior chamber clear. EARS: Pinnas intact and no signs of trauma or erythema. Ear canals clear and no discharge. TMs no erythema. NOSE: No discharge, no bleeding. OROPHARYNX: Mouth normal, teeth no caries, tongue pink. Pharynx clear, no erythema. Tonsils no exudates, no abscesses noted. Mucous membrane moist. NECK: Supple, non-tender, no thyromegaly, no masses, no JVD, no bruits. BREAST: Deferred. CHEST: No tenderness, no crepitus, no paradoxical movement, no retractions. LUNGS: Clear, well-ventilated, symmetric, no rales, no wheezing, no rhonchi, no stridor, good breath sounds bilaterally. HEART: Regular rate, regular rhythm, no murmur, no gallops. VASCULAR: No peripheral edema. ABDOMEN: Soft, positive bowel sounds, nondistended, no guarding, nontender, no rebound, no masses no hepatomegaly, no splenomegaly, no Beth's sign, no hernias. RECTAL: Deferred. GENITAL: Deferred. NEUROLOGICAL: Normal speech, gross motor function intact, gross sensory function intact. MUSCULOSKELETAL: Neck nontender, full range of motion, back nontender, full range of motion. EXTREMITIES: Nontender, full range of motion. SKIN: Color pink, dry, no turgor, no rash, no lacerations, no abrasions, no contusions. LYMPHATICS: Deferred. Results Laboratory and Microbiology Lab and Micro Result Laboratory Tests Test 11/25/24 13:32 Influenza Type A Antigen Negative For Type A Influenza Type B Antigen Negative For Type B SARS-CoV-2 Antigen (Rapid) POSITIVE FOR SARS AG Group A Streptococcus Rapid positive (NEGATIVE) *A MDM CC: Viral URI type symptoms Historian: Patient Comorbidities: None Limitations by social determinants of health: None Differential diagnosis: Viral URI, COVID, flu, pneumonia, other. Clinical exam is unremarkable. Mildly swollen tonsils but otherwise unremarkable. Clear lung sounds. Nontoxic in appearance. Patient declines chest x-ray. I did consider a chest x-ray but she declined since she was . Patient COVID positive consistent with the symptoms Plan: We will DC with supportive care and recommend follow up as needed. ED Course Orders Procedure Category Date Status Time Covid19 (Sars Antigen LAB 11/25/24 Complete Rapid) 13:26 Influenza Type A & B, LAB 11/25/24 Complete Rapid 13:26 Rapid (Group A Strep) LAB 11/25/24 Complete 13:31 Acetaminophen 500mg PHA 11/25/24 Complete Tab (Tylenol 500mg T 14:00 Ondansetron Odt 4mg PHA 11/25/24 Complete Tab (Zofran 4mg Odt) 14:00 Current Medications Medications (Trade) Dose Ordered Sig/Feliz Route PRN Reason Start Time Stop Time Status Last Admin Dose Admin Acetaminophen (TYLenol 500MG TAB) 1,000 mg ONCE ONCE PO 11/25/24 14:00 11/25/24 14:01 DC 11/25/24 13:57 Ondansetron HCl (zoFRAN 4MG ODT) 4 mg ONCE ONCE SL 11/25/24 14:00 11/25/24 14:01 DC 11/25/24 13:56 Vital Signs Date Time Temp Pulse Resp B/P (MAP) Pulse Ox O2 Delivery O2 Flow Rate FiO2 11/25/24 13:36 98.2 100 14 101/52 95 Room Air* 0 21 11/25/24 13:28 98.2 100 14 101/52 95 Room Air 0 DX & DISP Disposition: Discharge Departure Impression: Primary Impression: COVID-19 Condition: Stable Additional Instructions: You tested positive for COVID. This is likely the causing your symptoms. Your vital signs are stable. Your oxygen level is normal. Lung sounds are clear. As we discussed, you can treat this as you would a common cold. Do monitor for any respiratory distress, abnormal swelling, abnormal pains, or persistent high fevers. There are many pqaw-mvt-tizrkql cough and cold medicines that are safe in . You can take 1000 mg of Tylenol (acetaminophen) up to 4 times a day. For cough you can use dextromethorphan (Robitussin or Delsym) to loosen your mucus you can use guaifenesin (Mucinex). For runny nose you can use saline nasal spray. Avoid NSAIDs such as ibuprofen, aspirin or naproxen. You can also try natural remedies such as honey and lemon tea, using a humidifier, and gargling warm salt water for your sore throat. Please return to the emergency department if you have any concerns. Referrals: SELF,REFERRAL (PCP) MAE BRAUN DO Nov 25, 2024 13:46
[2024-11-25] MEDS: ondanSETRON ODT 4MG TAB SL ONE (13:56)
[2024-11-25] MEDS: acetaMINOPHEN 500 MG TABLET PO ONE (13:57)
[2024-11-25 14:26] LABS: COVID19 (SARS ANTIGEN RAPID) POSITIVE FOR SARS AG (NEGATIVE)
[2024-11-25 14:29] LABS: INFLUENZA TYPE A Negative For Type A (NEGATIVE); INFLUENZA TYPE B Negative For Type B (NEGATIVE)
== END 2024-11-25 15:12 | disposition home or self-care (01) ==
LOC: EDH 13:22
DX: O98.512 Other viral diseases complicating pregnancy, second trimester (principal); U07.1 COVID-19; Z3A.23 23 weeks gestation of pregnancy
CPT/HCPCS: 87426; 87804; 87880; 99283